=== PATIENT | female | born 1940 | race Caucasian/White ===

== ENCOUNTER 2018-05-28 02:17 | Inpatient (IN) ==
[2018-05-28] MEDS ORDERED: Sodium Chloride 0.9% 1,000 ML PRIMARY IV ONE ×2 (02:31→05:02)
[2018-05-28] MEDS ORDERED: PANTOPRAZOLE IV 40 MG VIAL IVP ONE (02:32)
[2018-05-28] MEDS ORDERED: Prochlorperazine Edisylate Inj 10mg/2ml vial IVP ONE (02:32)
[2018-05-28 02:42] LABS: BASOPHILS # (AUTO) 0.04 10*3/UL; BASOPHILS % (AUTO) 0.2 % (0-1); EOSINOPHILS # (AUTO) 0.14 10*3/UL; EOSINOPHILS % (AUTO) 0.8 % (0-8); Hematocrit [HCT] 44.5 % (37.0-47.0); Hemoglobin [HGB] 14.9 g/dL (12.0-16.0); LYMPHOCYTES # (AUTO) 2.78 10*3/uL; MEAN CORPUSCULAR HEMOGLOBIN 31.3 PG (27-31); MEAN CORPUSCULAR HGB CONC 33.5 g/dL (33-37); MEAN CORPUSCULAR VOLUME 93.5 FL (81-99); MEAN PLATELET VOLUME 10.2 FL (7.4-12.2); MONOCYTES # (AUTO) 1.27 10*3/UL (0.3-0.8); MONOCYTES % (AUTO) 7.3 % (5-15); NEUTROPHILS # (AUTO) 13.09 10*3/UL; NEUTROPHILS % (AUTO) 75.2 % (50-80); RED BLOOD COUNT 4.76 10^6/uL (4.20-5.40)
[2018-05-28 02:43] LABS: PLATELET MORPHOLOGY COMMENT NORMAL MORPHOLOGY (NORM); RBC MORPHOLOGY COMMENT NORMAL MORPHOLOGY (NORM); WBC MORPHOLOGY COMMENT NORMAL MORPHOLOGY (NORM)
[2018-05-28 02:50] LABS: BLOOD UREA NITROGEN 18 mg/dL (7-22); LIPASE 81 IU/L (23-300); SERUM ALBUMIN 4.6 g/dL (3.5-4.8)
[2018-05-28] MEDS ORDERED: diphenhydrAMINE 50 MG/1 ML VIAL IVP ONE (02:54)
--- NOTE | 2018-05-28 03:10 | PDOC ---
Nausea/Vomiting/Diarrhea HPI - General Chief Complaint: Nausea / Vomiting / Diarrhea Stated Complaint: N/V/D Date Seen by Provider: 05/28/18 Time Seen by Provider: 02:25 Source: POSITIVE: Patient, EMS Exam Limitations: POSITIVE: No limitations Nurse's Notes Reviewed & Considered: Yes EMS Report Reviewed & Considered: Verbal - History of Present Illness Initial Comments: The patient is a 77-year-old female who presents to the emergency department by ambulance with complaints of vomiting and diarrhea. She apparently had onset of nausea and vomiting approximately an hour prior to arrival in the emergency department. She states that she had multiple episodes of vomiting at home as well as multiple episodes of loose watery diarrhea. She does have some associated generalized abdominal pain. She had multiple episodes of vomiting at home and was feeling shaky and had chills, EMS was subsequently called. She also reports headache and states that she "hurts all over." She lives in [place] and is here getting a second opinion from Dr. Echols regarding her knee. She had knee surgery approximately 5 years ago and has had problems since then. She also had surgery on her hip which became infected and she required a prolonged course of IV antibiotics earlier this year. She reports that she did have a colonoscopy just 2 days ago and this was apparently normal. She does not currently take any blood thinners. She does drink regularly. - Patient Home Medications Home Medications: Home Medications Calcium Carbonate/Vitamin D3 [Calcium 600 + Vit D 200 Tablet] 1 ea PO DAILY 07/03 Cetirizine HCl [Allergy Relief] 10 mg PO DAILY 05/28/18 Cyanocobalamin (Vitamin B-12) [Vitamin B12] 1,000 mg PO DAILY 05/28/18 Diclofenac Sodium 1 unit TOPICAL PRN 05/28/18 Escitalopram Oxalate [Lexapro] 10 mg PO DAILY 05/28/18 Fluticasone Nasal [place] 0.05% [Flonase Nasal [place] 0.05%] 1 sprays NASAL DAILY 05/28/18 Gabapentin 600 mg PO BID 05/28/18 Hydrocodone Bit/Acetaminophen [Hydrocodon-Acetaminoph 7.5-325] 1 ea PO PRN 05/28 Polyethylene Glycol 3350 [Glycolax] 527 gm PO PRN 05/28/18 - Patient Allergies Allergies/Adverse Reactions: Allergies 3 Allergy/AdvReac Type Severity Reaction Status Date / Time shellfish derived Allergy RASH Verified 05/28/18 02:43 Past Medical History Past Medical History Reviewed: Other (please comment) (As per nursing assessment ) ROS - Limitations ROS Limitations: No Limitations Constitution: REPORTS: Chills, Weakness. DENIES: Fever Cardiovascular: DENIES: Chest Pain, Edema Respiratory: DENIES: Shortness Of Breath Neurological: REPORTS: Headache Gastrointestinal: REPORTS: Abdominal Pain, Nausea, Vomitting, Diarrhea. DENIES : Black Stools, Bloody Stools Endocrine: REPORTS: Fatigue Musculoskeletal: REPORTS: Denies MS Symptoms Genitourinary: REPORTS: Denies Symptoms Eyes: REPORTS: Denies Symptoms ENT: REPORTS: Denies Symptoms Skin: DENIES: Rash Nausea/Vomiting/Diarrhea Exam - General Appearance General Appearance: POSITIVE: Alert, Cooperative, No Acute Distress - HEENT HEENT: POSITIVE: Head Inspection Nml, Eyes Inspection Nml, Ears Inspection Nml, Nose Inspection Nml, Dry Mucous Membranes - Neck Neck: POSITIVE: Supple. NEGATIVE: Lymphadenopathy - Respiratory Respiratory: POSITIVE: No Respiratory Distress, Breath Sounds Normal - Cardiovascular Cardiovascular: POSITIVE: Regular Rate and Rhythm, Heart Sounds Normal Peripheral Pulses: Dorsalis-pedis (R): 2+, Dorsalis-pedis (L): 2+ - Abdomen Abdomen: Soft: (All Quadrants), Denies Tenderness: (All Quadrants), No Distention: (All Quadrants) - Skin Skin: POSITIVE: Intact, No Rash - Extremities Extremity: Normal ROM: (All Extremities), Normal Inspection: (All Extremities) - Neurological / Psychological Neurological: POSITIVE: Oriented X3 N/V/D Progress - Results Reviewed by me Xrays/CTs/US Reviewed by me: Yes Discussed with Radiologist: Yes Radiology Findings: CT head shows no acute intracranial findings per radiologist. CT of the abdomen and pelvis with IV contrast shows a diffuse colitis with no other acute findings per radiologist. Lab Results Reviewed by Me: Yes CBC and BMP: 05/28/18 02:30 05/28/18 02:30 Lab Results:: Laboratory Results 3 05/28/18 05/28/18 05/28/18 02:30 02:30 02:30 WBC 17.41 H RBC 4.76 Hgb 14.9 Hct 44.5 MCV 93.5 MCH 31.3 H MCHC 33.5 RDW Std Deviation 50.6 H RDW Coeff of Michele 15.1 H Plt Count 285 MPV 10.2 Immature Gran % (Auto) 0.5 Neut % (Auto) 75.2 Lymph % (Auto) 16.0 [place] % (Auto) 7.3 Eos % (Auto) 0.8 Baso % (Auto) 0.2 Immature Gran # (Auto) 0.09 Neut # (Auto) 13.09 Lymph # (Auto) 2.78 [place] # (Auto) 1.27 H Eos # (Auto) 0.14 Baso # (Auto) 0.04 WBC Morphology Comment Normal morphology Plt Morphology Comment Normal morphology RBC Morph Comment Normal morphology VBG pH VBG pCO2 VBG HCO3 VBG Base Excess Sodium 144 Potassium 3.6 L Chloride 106 Carbon Dioxide 27 Anion Gap 11 BUN 18 Creatinine 0.8 BUN/Creatinine Ratio 22.50 H Glucose 235 H Calculated Osmolality 307.0 H Lactic Acid Calcium 9.5 Magnesium Total Bilirubin 1.5 H AST 29 ALT 33 Alkaline Phosphatase 110 Troponin I < 0.012 C-Reactive Protein Total Protein 8.0 Albumin 4.6 Globulin 3.4 Albumin/Globulin Ratio 1.30 Amylase 79 Lipase 81 Ur Collection Type Urine Color Urine Clarity Urine pH Ur Specific Athena Urine Protein Urine Glucose (UA) Urine Ketones Urine Occult Blood Urine Nitrate Urine Bilirubin Urine Urobilinogen Ur Leukocyte Esterase Ur Culture Indicated? Serum Alcohol 3 05/28/18 05/28/18 05/28/18 02:30 02:30 02:30 WBC RBC Hgb Hct MCV MCH MCHC RDW Std Deviation RDW Coeff of Michele Plt Count MPV Immature Gran % (Auto) Neut % (Auto) Lymph % (Auto) [place] % (Auto) Eos % (Auto) Baso % (Auto) Immature Gran # (Auto) Neut # (Auto) Lymph # (Auto) [place] # (Auto) Eos # (Auto) Baso # (Auto) WBC Morphology Comment Plt Morphology Comment RBC Morph Comment VBG pH VBG pCO2 VBG HCO3 VBG Base Excess Sodium Potassium Chloride Carbon Dioxide Anion Gap BUN Creatinine BUN/Creatinine Ratio Glucose Calculated Osmolality Lactic Acid 2.3 H Calcium Magnesium Total Bilirubin AST ALT Alkaline Phosphatase Troponin I C-Reactive Protein 0.6 Total Protein Albumin Globulin Albumin/Globulin Ratio Amylase Lipase Ur Collection Type Urine Color Urine Clarity Urine pH Ur Specific Athena Urine Protein Urine Glucose (UA) Urine Ketones Urine Occult Blood Urine Nitrate Urine Bilirubin Urine Urobilinogen Ur Leukocyte Esterase Ur Culture Indicated? Serum Alcohol < 10 3 1105/28/18 05/28/18 02:30 02:52 04:05 WBC RBC Hgb Hct MCV MCH MCHC RDW Std Deviation RDW Coeff of Michele Plt Count MPV Immature Gran % (Auto) Neut % (Auto) Lymph % (Auto) [place] % (Auto) Eos % (Auto) Baso % (Auto) Immature Gran # (Auto) Neut # (Auto) Lymph # (Auto) [place] # (Auto) Eos # (Auto) Baso # (Auto) WBC Morphology Comment Plt Morphology Comment RBC Morph Comment VBG pH 7.41 VBG pCO2 36 L VBG HCO3 23 VBG Base Excess -2 Sodium Potassium Chloride Carbon Dioxide Anion Gap BUN Creatinine BUN/Creatinine Ratio Glucose Calculated Osmolality Lactic Acid Calcium Magnesium 2.1 Total Bilirubin AST ALT Alkaline Phosphatase Troponin I C-Reactive Protein Total Protein Albumin Globulin Albumin/Globulin Ratio Amylase Lipase Ur Collection Type Clean catch urine Urine Color Yellow Urine Clarity Clear Urine pH 5.0 Ur Specific [place] 1.015 Urine Protein Negative Urine Glucose (UA) 100 Urine Ketones Trace A Urine Occult Blood Negative Urine Nitrate Negative Urine Bilirubin Negative Urine Urobilinogen 0.2 Ur Leukocyte Esterase Negative Ur Culture Indicated? Culture not set Serum Alcohol EKG Interpretation:: POSITIVE: Normal Sinus Rhythm, Normal Rate, Normal QRS, Normal ST/T - Patient's Progress MDM / ED Course: An IV had been established per EMS and she did receive 1 L bolus of normal saline. She had received IV Zofran in route per EMS however on arrival she was still actively vomiting. She had multiple episodes of emesis and dry heaves and subsequently received Compazine 2.5 mg IV and Protonix 40 mg IV. She was having significant chills on arrival. Blood cultures and lactate were drawn with initial IV start. Her venous blood gas showed a normal pH. Her blood sugar is slightly elevated at 240. She had continued active vomiting and dry heaves and received Benadryl 25 mg IV. Blood work reveals an elevated white count at 17,000. The remainder of her blood work and urinalysis are essentially unremarkable. She was complaining of some headache as well as generalized abdominal pain. CT scan of the head showed no acute intracranial findings per radiologist. CT the abdomen and pelvis shows a diffuse colitis with no other acute findings per radiologist. After CT findings were discussed with the patient and her family. She is feeling somewhat better although she still has some generalized abdominal pain. She was unable to provide a stool sample here in the emergency department. The patient is discussed with Dr. Roman and he has agreed to admit the patient for further treatment. She was given Rocephin and Flagyl. - Consult Counseled: POSITIVE: Patient, Family, RE: Lab Results, RE: Radiology Results, RE : DX Patient Care Time - Estimated PCT Patient Care Time (In Minutes): 35 Vital Signs - Recent Vital Signs Vital Signs: Vital Signs (Last 8 hours) Temp Pulse Pulse Resp BP BP Pulse Ox 05/28/18 07:30 97.2 F 86 18 139/58 96 05/28/18 07:29 97 05/28/18 06:56 92 05/28/18 06:05 98.2 F 60 18 147/54 92 05/28/18 05:50 97.6 F 71 18 158/72 91 05/28/18 02:17 97.2 F 63 20 169/76 94 - VS Reviewed Vital Signs Reviewed: Yes Discharge Clinical Impression: Nausea and vomiting, Dehydration, Colitis Discharge Disposition: Admit to Inpatient Condition: Stable Date Decision to Admit to Inpatient: 05/28/18 Time Decision to Admit to Inpatient: 04:45
[2018-05-28 04:07] LABS: BILIRUBIN,URINE NEGATIVE (NEG); CLARITY,URINE CLEAR (CLEAR); COLOR,URINE YELLOW (Y); GLUCOSE, URINE (UA) 100 mg/dL (NEG); OCCULT BLOOD,URINE NEGATIVE (NEG); PROTEIN,URINE NEGATIVE (NEG); URINE SAMPLE TYPE CLEAN CATCH URINE; UROBILINOGEN,URINE 0.2 EU/dL (0.2)
--- NOTE | 2018-05-28 04:16 | DI ---
EXAM: CT Head Without Intravenous Contrast CLINICAL HISTORY: ITS.REASON VELAZQUEZ, vomiting Physician Notes: Tech Comments: TECHNIQUE: Axial computed tomography images of the head/brain without intravenous contrast. COMPARISON: No relevant prior studies available. FINDINGS: Brain: Unremarkable. No hemorrhage. No significant white matter disease. No edema. There is mild diffuse atrophy. Ventricles: Unremarkable. No ventriculomegaly. Bones/joints: Unremarkable. No acute fracture. Soft tissues: Unremarkable. Sinuses: Unremarkable as visualized. No acute sinusitis. Mastoid air cells: Unremarkable as visualized. No mastoid effusion. IMPRESSION: No acute findings.
--- NOTE | 2018-05-28 04:20 | DI ---
EXAM: CT Abdomen and Pelvis With Intravenous Contrast CLINICAL HISTORY: ITS.REASON abdominal pain, vomiting, elevated WBC Physician Notes: Tech Comments: TECHNIQUE: Axial computed tomography images of the abdomen and pelvis with intravenous contrast. COMPARISON: No relevant prior studies available. FINDINGS: Lung bases: There is mild bibasilar atelectasis. ABDOMEN: Liver: Unremarkable. No mass. Gallbladder and bile ducts: Unremarkable. No calcified stones. No ductal dilation. Pancreas: Unremarkable. No mass. No ductal dilation. Spleen: Unremarkable. No splenomegaly. Adrenals: Unremarkable. No mass. Kidneys and ureters: Unremarkable. No solid mass. No hydronephrosis. Stomach and bowel: There is mild circumferential wall thickening throughout the colon, suggestive of diffuse colitis. There are no inflammatory changes in bowel mesentery. There is no evidence of acute appendicitis or diverticulitis. No obstruction. PELVIS: Appendix: See above. Bladder: Unremarkable. No mass. Reproductive: The uterus is not seen, likely surgically removed. There is a 1 cm dystrophic appearing oval calcification in the right adnexa, possibly related to the right ovary. ABDOMEN and PELVIS: Intraperitoneal space: Unremarkable. No free air. No significant fluid collection. Bones/joints: There are postsurgical changes from right hip replacement with associated streak artifact in the pelvis. There is diffuse osteopenia with mild to moderate diffuse degenerative disc disease. No acute fracture. No dislocation. Soft tissues: Unremarkable. Vasculature: There is a mild to moderate amount of atherosclerotic calcification of the aorta and its branches.. No abdominal aortic aneurysm. Lymph nodes: Unremarkable. No enlarged lymph nodes. IMPRESSION: Diffuse colitis.
[2018-05-28 04:42] LABS: VENOUS PH 7.41 (7.32-7.42)
[2018-05-28] MEDS ORDERED: metroNIDAZOLE 500mg (Premix) 500 MG/100 ML BAG IV ONE (04:54)
[2018-05-28] MEDS ORDERED: cefTRIAXone Inj 1 GM in Sodium Chloride 0.9% 100 ML IV ONE (04:54)
[2018-05-28] MEDS ORDERED: LIDOCAINE W/ SODIUM BICARB 0.5 ML SYR SUBD PRN (05:54)
[2018-05-28] MEDS ORDERED: HYDROmorphone 2 MG/1 ML IVP PRN (05:54)
[2018-05-28] MEDS ORDERED: CALCIUM CARBONATE 500 MG (TUMS) CHEWABLE TABLET PO PRN (05:54)
[2018-05-28] MEDS ORDERED: ONDANSETRON 4 MG/2 ML VIAL IVP PRN (05:54)
[2018-05-28] MEDS: Sodium Chloride 0.9% 1,000 ML PRIMARY IV SCH ×2 (06:42→16:27)
--- NOTE | 2018-05-28 07:51 | EKG ---
[address] [place] [address] [place] [address] Measurements Intervals [place] Rate: 53 P: 65 AR: 166 QRS: 26 QRSD: 88 T: 22 QT: 446 QTc: 430 Interpretive Statements SINUS BRADYCARDIA WITH OCCASIONAL SUPRAVENTRICULAR PREMATURE COMPLEXES MODERATE T-WAVE ABNORMALITY, CONSIDER ANTERIOR ISCHEMIA [-0.1+ mV T WAVE IN V3/V4] No previous ECG available for comparison Electronically Signed On 05-28-18 08:22:53 MST by Dheeraj Burrell MD [email or web address]
[2018-05-28] MEDS: metroNIDAZOLE 500mg (Premix) 500 MG/100 ML BAG IV SCH ×2 (08:05→14:33)
[2018-05-28] MEDS: ESCITALOPRAM 10 MG TABLET PO SCH (10:18)
[2018-05-28] MEDS: GABAPENTIN 300 MG CAPSULE PO SCH ×2 (10:18→21:46)
[2018-05-28 10:55] LABS: HEMOGLOBIN A1C 5.39 % (4.2-6.0)
--- NOTE | 2018-05-28 11:01 | PDOC ---
HPI - History of Present Illness Date of Service: 05/28/18 Time of Service: 09:30 Chief Complaint: Nausea and vomiting and diarrhea History of Present Illness: This very pleasant 77-year-old female who's had a complex history this past year who presented with nausea and vomiting and diarrhea of sudden onset last night that was not resolved and she came in to the emergency room accompanied by her daughter. She is actually in town here to seek a second opinion for possible right knee revision after a knee replacement 5 years ago. Home is [place]. Interestingly, she had a colonoscopy 3 days ago as she had had a history of colon polyps and apparently some rectal adenomas. She had stated that colonoscopy was negative. She had no problems after the prep or in the 3 subsequent days and denied any fever last night. She had some abdominal pain but that's better this morning. Benadryl finally relieved her nausea and vomiting after Compazine and Zofran did not. She had a course of antibiotics over the summer after a right hip replacement with tissue infection and she spent 6 weeks on IV antibiotics and then another several weeks on by mouth antibiotics. She had diarrhea through that time but apparently did not have C. difficile colitis or C. difficile diarrhea. Despite ordering a C. difficile study, the patient has not had any further diarrhea since arrival in the emergency room. The patient stated the diarrhea from her antibiotics over the summer resolved. She denied any blood in the diarrhea last night. Her vomiting has resolved and she has an appetite this morning and would like to eat. CT scan showed diffuse colon wall inflammatory changes throughout the colon but no mesenteric inflammation. The patient was told that the colonoscopy and [place] was negative. That study was done with contrast. She does admit to drinking 2 beers per day. Her daughter attributes the symptoms to dehydration. Past Medical History Medical History: 1. Osteoarthritis with multiple surgeries. 2. Possible depression as she is on Lexapro. 3. Seasonal allergies Surgical History: 1. shoulder surgeries. 2. right hip replacement. 3. right knee replacement. 4. Hysterectomy. 5. Neck surgery. 6. Back surgeries Pertinent Family History: Sister has very bad diabetes Past Social History: Does not smoke. Drinks upwards of 2 alcoholic beverages daily. Lives in [place], [place], is but her has dementia and is in a senior care and repetition. Patient had 3 children but unfortunately one child has passed on. Her daughter is present with her here at bedside today. Tobacco Use: Former Smoker In the Past 12 Months, Have Used or Abuse Any of the Following Substance: None Alcohol Use: Other (2 alcoholic beverages daily.) Medication / Allergies Home Medications: Home Medications 3 Medication Instructions Recorded Confirmed Type Calcium Carbonate/Vitamin D3 1 ea PO DAILY 05/28/18 05/28/18 History [Calcium 600 + Vit D 200 Tablet] Cetirizine HCl [Allergy Relief] 10 mg PO DAILY 05/28/18 05/28/18 History Cyanocobalamin (Vitamin B-12) 1,000 mg PO DAILY 05/28/18 05/28/18 History [Vitamin B12] Diclofenac Sodium 1 unit TOPICAL PRN 05/28/18 05/28/18 History Escitalopram Oxalate [Lexapro] 10 mg PO DAILY 05/28/18 05/28/18 History Fluticasone Nasal [place] 0.05% 1 sprays NASAL DAILY 05/28/18 05/28/18 History [Flonase Nasal [place] 0.05%] Gabapentin 600 mg PO BID 05/28/18 05/28/18 History Hydrocodone Bit/Acetaminophen 1 ea PO PRN 05/28/18 05/28/18 History [Hydrocodon-Acetaminoph 7.5-325] Polyethylene Glycol 3350 [Glycolax] 527 gm PO PRN 05/28/18 05/28/18 History Allergies/Adverse Reactions: Allergies 3 Allergy/AdvReac Type Severity Reaction Status Date / Time shellfish derived Allergy RASH Verified 05/28/18 02:43 Review of Systems - Review of Systems All Systems: Reviewed & No Additional Complaints Except as Stated (I did a 12 point review of systems and it was negative other than that discussed in the history of present illness and exceptions noted below.) - Additonal Details Additional ROS Details: Remote history of thyroid problems during her pregnancies that resolved and she has no longer on medications. Exam - Vitals Vital Signs: Vital Signs Temperature 97.2 F Temperature Source Temporal Artery Scan Pulse Rate [Pulse Oximeter] 86 Pulse Rate 86 Respiratory Rate 18 Blood Pressure [Left Arm] 139/58 Blood Pressure 139/58 Pulse Ox 96 Oxygen Flow Rate 2 Oxygen Delivery Method Nasal Cannula Height 5 ft 3 in Weight 139 lb - General General Appearance: No Acute Distress, Cooperative - Head Head Exam: Normal Inspection, Normocephalic, Atraumatic - Eye Eye Exam: POSITIVE: No Scleral Icterus - ENT ENT Exam: POSITIVE: Mucous Membranes Moist - Neck Neck Exam: Normal Inspection, No Tenderness, No Lymphadenopathy, No Thyromegaly , JVP is not Raised - Respiratory Respiratory Exam: POSITIVE: Clear to Auscultation - Bilaterally, Breathing Non Labored, Normal to Percussion and Palpation - Cardiovascular Cardiovascular Exam: POSITIVE: RRR, No Murmur, No Clicks, No Gallops, No Rubs, No JVD - GI/Abdominal GI/Abdominal Exam: POSITIVE: Normal Bowel Sounds, Non Tender, Non Distended, Soft - Rectal Rectal Exam: POSITIVE: Deferred - External Exam: POSITIVE: Deferred - Extremities Extremities Exam: POSITIVE: No Clubbing Present, No Edema Present, No Cyanosis Present - Back Back Exam: POSITIVE: No CVA Tenderness Additional Back Exam Details: Scar from prior lumbar surgeries noted. - Neurological Neurological Exam: POSITIVE: Alert, Oriented x 3, No Facial Droop, Speech Intact / Clear, Moves All Extremities Equally - Psychiatric Psychiatric Exam: POSITIVE: Normal Affect, Normal Mood Results - Labs CBC and BMP: 05/28/18 02:30 05/28/18 02:30 Additional Lab Results: Laboratory Results 05/28/18 05/28/18 05/28/18 Range/Units 02:30 02:30 02:30 WBC 17.41 H (4.8-10.8) 10^3/uL RBC 4.76 (4.20-5.40) 10^6/uL Hgb 14.9 (12.0-16.0) g/dL Hct 44.5 (37.0-47.0) % MCV 93.5 (81-99) FL MCH 31.3 H (27-31) PG MCHC 33.5 (33-37) g/dL RDW Std Deviation 50.6 H (39-50) fL RDW Coeff of Michele 15.1 H (11.5-14.5) % Plt Count 285 (140-350) 10*3/uL MPV 10.2 (7.4-12.2) FL Immature Gran % (Auto) 0.5 (0-5) % Neut % (Auto) 75.2 (50-80) % Lymph % (Auto) 16.0 (10-50) % [place] % (Auto) 7.3 (5-15) % Eos % (Auto) 0.8 (0-8) % Baso % (Auto) 0.2 (0-1) % Immature Gran # (Auto) 0.09 10*3/UL Neut # (Auto) 13.09 10*3/UL Lymph # (Auto) 2.78 10*3/uL [place] # (Auto) 1.27 H (0.3-0.8) 10*3/UL Eos # (Auto) 0.14 10*3/UL Baso # (Auto) 0.04 10*3/UL WBC Morphology Comment Normal morphology (NORM) Plt Morphology Comment Normal morphology (NORM) RBC Morph Comment Normal morphology (NORM) VBG pH (7.32-7.42) VBG pCO2 (45-55) mmHg VBG HCO3 (22-26) mmol/L VBG Base Excess (-2-2) MMOL/L Sodium 144 (135-145) meq/L Potassium 3.6 L (3.8-5.2) meq/L Chloride 106 (98-112) meq/L Carbon Dioxide 27 (23-33) meq/L Anion Gap 11 (5-20) BUN 18 (7-22) mg/dL Creatinine 0.8 (0.50-1.20) mg/dL BUN/Creatinine Ratio 22.50 H (6-20) Glucose 235 H (78-110) mg/dL Mean Blood Glucose mg/dL Hemoglobin A1c (4.2-6.0) % Calculated Osmolality 307.0 H (267-292) mOsm/kg Lactic Acid (0.70-2.10) MMOL/L Calcium 9.5 (8.7-10.7) mg/dL Magnesium (1.6-2.4) mg/dL Total Bilirubin 1.5 H (0.3-1.2) mg/dL AST 29 (8-39) IU/L ALT 33 (9-52) IU/L Alkaline Phosphatase 110 (38-126) IU/L Troponin I < 0.012 (< 0.040) ng/mL C-Reactive Protein (0.0-0.9) mg/dL Total Protein 8.0 (6.1-8.0) g/dL Albumin 4.6 (3.5-4.8) g/dL Globulin 3.4 (2.50-4.10) g/dL Albumin/Globulin Ratio 1.30 (1.3-2.0) mg/g Amylase 79 (30-110) U/L Lipase 81 (23-300) IU/L Ur Collection Type Urine Color (Y) Urine Clarity (CLEAR) Urine pH (5.0-8.5) Ur Specific [place] (1.005-1.030) Urine Protein (NEG) mg/dl Urine Glucose (UA) (NEG) mg/dL Urine Ketones (NEG) Urine Occult Blood (NEG) Urine Nitrate (NEG) Urine Bilirubin (NEG) Urine Urobilinogen (0.2) EU/dL Ur Leukocyte Esterase (NEG) Ur Culture Indicated? Serum Alcohol (0-10) mg/dL 05/28/18 05/28/18 05/28/18 Range/Units 02:30 02:30 02:30 WBC (4.8-10.8) 10^3/uL RBC (4.20-5.40) 10^6/uL Hgb (12.0-16.0) g/dL Hct (37.0-47.0) % MCV (81-99) FL MCH (27-31) PG MCHC (33-37) g/dL RDW Std Deviation (39-50) fL RDW Coeff of Michele (11.5-14.5) % Plt Count (140-350) 10*3/uL MPV (7.4-12.2) FL Immature Gran % (Auto) (0-5) % Neut % (Auto) (50-80) % Lymph % (Auto) (10-50) % [place] % (Auto) (5-15) % Eos % (Auto) (0-8) % Baso % (Auto) (0-1) % Immature Gran # (Auto) 10*3/UL Neut # (Auto) 10*3/UL Lymph # (Auto) 10*3/uL [place] # (Auto) (0.3-0.8) 10*3/UL Eos # (Auto) 10*3/UL Baso # (Auto) 10*3/UL WBC Morphology Comment (NORM) Plt Morphology Comment (NORM) RBC Morph Comment (NORM) VBG pH (7.32-7.42) VBG pCO2 (45-55) mmHg VBG HCO3 (22-26) mmol/L VBG Base Excess (-2-2) MMOL/L Sodium (135-145) meq/L Potassium (3.8-5.2) meq/L Chloride (98-112) meq/L Carbon Dioxide (23-33) meq/L Anion Gap (5-20) BUN (7-22) mg/dL Creatinine (0.50-1.20) mg/dL BUN/Creatinine Ratio (6-20) Glucose (78-110) mg/dL Mean Blood Glucose mg/dL Hemoglobin A1c (4.2-6.0) % Calculated Osmolality (267-292) mOsm/kg Lactic Acid 2.3 H (0.70-2.10) MMOL/L Calcium (8.7-10.7) mg/dL Magnesium (1.6-2.4) mg/dL Total Bilirubin (0.3-1.2) mg/dL AST (8-39) IU/L ALT (9-52) IU/L Alkaline Phosphatase (38-126) IU/L Troponin I (< 0.040) ng/mL C-Reactive Protein 0.6 (0.0-0.9) mg/dL Total Protein (6.1-8.0) g/dL Albumin (3.5-4.8) g/dL Globulin (2.50-4.10) g/dL Albumin/Globulin Ratio (1.3-2.0) mg/g Amylase (30-110) U/L Lipase (23-300) IU/L Ur Collection Type Urine Color (Y) Urine Clarity (CLEAR) Urine pH (5.0-8.5) Ur Specific [place] (1.005-1.030) Urine Protein (NEG) mg/dl Urine Glucose (UA) (NEG) mg/dL Urine Ketones (NEG) Urine Occult Blood (NEG) Urine Nitrate (NEG) Urine Bilirubin (NEG) Urine Urobilinogen (0.2) EU/dL Ur Leukocyte Esterase (NEG) Ur Culture Indicated? Serum Alcohol < 10 (0-10) mg/dL 05/28/18 05/28/18 05/28/18 Range/Units 02:30 02:52 04:05 WBC (4.8-10.8) 10^3/uL RBC (4.20-5.40) 10^6/uL Hgb (12.0-16.0) g/dL Hct (37.0-47.0) % MCV (81-99) FL MCH (27-31) PG MCHC (33-37) g/dL RDW Std Deviation (39-50) fL RDW Coeff of Michele (11.5-14.5) % Plt Count (140-350) 10*3/uL MPV (7.4-12.2) FL Immature Gran % (Auto) (0-5) % Neut % (Auto) (50-80) % Lymph % (Auto) (10-50) % [place] % (Auto) (5-15) % Eos % (Auto) (0-8) % Baso % (Auto) (0-1) % Immature Gran # (Auto) 10*3/UL Neut # (Auto) 10*3/UL Lymph # (Auto) 10*3/uL [place] # (Auto) (0.3-0.8) 10*3/UL Eos # (Auto) 10*3/UL Baso # (Auto) 10*3/UL WBC Morphology Comment (NORM) Plt Morphology Comment (NORM) RBC Morph Comment (NORM) VBG pH 7.41 (7.32-7.42) VBG pCO2 36 L (45-55) mmHg VBG HCO3 23 (22-26) mmol/L VBG Base Excess -2 (-2-2) MMOL/L Sodium (135-145) meq/L Potassium (3.8-5.2) meq/L Chloride (98-112) meq/L Carbon Dioxide (23-33) meq/L Anion Gap (5-20) BUN (7-22) mg/dL Creatinine (0.50-1.20) mg/dL BUN/Creatinine Ratio (6-20) Glucose (78-110) mg/dL Mean Blood Glucose mg/dL Hemoglobin A1c (4.2-6.0) % Calculated Osmolality (267-292) mOsm/kg Lactic Acid (0.70-2.10) MMOL/L Calcium (8.7-10.7) mg/dL Magnesium 2.1 (1.6-2.4) mg/dL Total Bilirubin (0.3-1.2) mg/dL AST (8-39) IU/L ALT (9-52) IU/L Alkaline Phosphatase (38-126) IU/L Troponin I (< 0.040) ng/mL C-Reactive Protein (0.0-0.9) mg/dL Total Protein (6.1-8.0) g/dL Albumin (3.5-4.8) g/dL Globulin (2.50-4.10) g/dL Albumin/Globulin Ratio (1.3-2.0) mg/g Amylase (30-110) U/L Lipase (23-300) IU/L Ur Collection Type Clean catch urine Urine Color Yellow (Y) Urine Clarity Clear (CLEAR) Urine pH 5.0 (5.0-8.5) Ur Specific [place] 1.015 (1.005-1.030) Urine Protein Negative (NEG) mg/dl Urine Glucose (UA) 100 (NEG) mg/dL Urine Ketones Trace A (NEG) Urine Occult Blood Negative (NEG) Urine Nitrate Negative (NEG) Urine Bilirubin Negative (NEG) Urine Urobilinogen 0.2 (0.2) EU/dL Ur Leukocyte Esterase Negative (NEG) Ur Culture Indicated? Culture not set Serum Alcohol (0-10) mg/dL 05/28/18 Range/Units 10:47 WBC (4.8-10.8) 10^3/uL RBC (4.20-5.40) 10^6/uL Hgb (12.0-16.0) g/dL Hct (37.0-47.0) % MCV (81-99) FL MCH (27-31) PG MCHC (33-37) g/dL RDW Std Deviation (39-50) fL RDW Coeff of Michele (11.5-14.5) % Plt Count (140-350) 10*3/uL MPV (7.4-12.2) FL Immature Gran % (Auto) (0-5) % Neut % (Auto) (50-80) % Lymph % (Auto) (10-50) % [place] % (Auto) (5-15) % Eos % (Auto) (0-8) % Baso % (Auto) (0-1) % Immature Gran # (Auto) 10*3/UL Neut # (Auto) 10*3/UL Lymph # (Auto) 10*3/uL [place] # (Auto) (0.3-0.8) 10*3/UL Eos # (Auto) 10*3/UL Baso # (Auto) 10*3/UL WBC Morphology Comment (NORM) Plt Morphology Comment (NORM) RBC Morph Comment (NORM) VBG pH (7.32-7.42) VBG pCO2 (45-55) mmHg VBG HCO3 (22-26) mmol/L VBG Base Excess (-2-2) MMOL/L Sodium (135-145) meq/L Potassium (3.8-5.2) meq/L Chloride (98-112) meq/L Carbon Dioxide (23-33) meq/L Anion Gap (5-20) BUN (7-22) mg/dL Creatinine (0.50-1.20) mg/dL BUN/Creatinine Ratio (6-20) Glucose (78-110) mg/dL Mean Blood Glucose 93.487 mg/dL Hemoglobin A1c 5.39 (4.2-6.0) % Calculated Osmolality (267-292) mOsm/kg Lactic Acid (0.70-2.10) MMOL/L Calcium (8.7-10.7) mg/dL Magnesium (1.6-2.4) mg/dL Total Bilirubin (0.3-1.2) mg/dL AST (8-39) IU/L ALT (9-52) IU/L Alkaline Phosphatase (38-126) IU/L Troponin I (< 0.040) ng/mL C-Reactive Protein (0.0-0.9) mg/dL Total Protein (6.1-8.0) g/dL Albumin (3.5-4.8) g/dL Globulin (2.50-4.10) g/dL Albumin/Globulin Ratio (1.3-2.0) mg/g Amylase (30-110) U/L Lipase (23-300) IU/L Ur Collection Type Urine Color (Y) Urine Clarity (CLEAR) Urine pH (5.0-8.5) Ur Specific [place] (1.005-1.030) Urine Protein (NEG) mg/dl Urine Glucose (UA) (NEG) mg/dL Urine Ketones (NEG) Urine Occult Blood (NEG) Urine Nitrate (NEG) Urine Bilirubin (NEG) Urine Urobilinogen (0.2) EU/dL Ur Leukocyte Esterase (NEG) Ur Culture Indicated? Serum Alcohol (0-10) mg/dL - Imaging Status: Image Reviewed by Me (I looked at the head CT scan. There is no evidence of blood. It was read as negative by the radiologist. I looked at the abdominal CT scan. It was read as diffuse colitis.) Assessment and Plan - Patient Problems (1) Colitis Current Visit: Yes Status: Acute Code(s): K52.9 - Noninfective gastroenteritis and colitis, unspecified (2) Osteoarthritis Current Visit: Yes Status: Acute Code(s): M19.90 - Unspecified osteoarthritis, unspecified site Qualifiers: Osteoarthritis location: multiple joints Osteoarthritis type: primary Qualified Code(s): M15.0 - Primary generalized (osteo)arthritis - Assessment / Plan Additional Assessment/Plan Details: This is a very difficult case, with recent antibiotics and recent colonoscopy, could be related to C. diff, could be related to colonoscope. Likely not ischemic as not segmental colon involvement and no blood. I spoke to GI and surgery for advice on how to approach this case. For now, will treat as if this could be infectious colitis and hold off on steroids for now. rare to have infection from colonoscope, but possible and also chemical colitis reported from cleaning prep for colonoscope. GI and surgery also suggested prep could have caused symptoms. will try to get records from [facility], regarding colonoscopy findings. stool studies ordered rocephin/flagyl for now. when okay to go PO, consider cipro/flagyl labs in AM hyperglycemia (stress hyperglycemia), HbA1C is normal check inflammatory markers. Code status is DO NOT RESUSCITATE
[2018-05-28] MEDS ORDERED: Influenza 18-19 Vaccine (6mo+) 60 MCG/0.5 ML SYRINGE IM ONE (11:35)
[2018-05-28] MEDS: ACETAMINOPHEN 325 MG TABLET PO PRN (18:10)
[2018-05-28] MEDS ORDERED: ACIDOPHILUS/BULGARICUS 1 EACH GRAN.PACK PO ONE (19:28)
[2018-05-28] MEDS: Vancomycin Oral Soln 125 MG/5 ML (7500MG/300ML) BOTTLE PO SCH (21:45)
[2018-05-28] MEDS: ACIDOPHILUS/BULGARICUS 1 EACH GRAN.PACK PO SCH (21:46)
[2018-05-29] MEDS: Sodium Chloride 0.9% 1,000 ML PRIMARY IV SCH ×2 (02:57→07:38)
[2018-05-29] MEDS: Vancomycin Oral Soln 125 MG/5 ML (7500MG/300ML) BOTTLE PO SCH ×4 (02:58→20:02)
[2018-05-29] MEDS: ACETAMINOPHEN 325 MG TABLET PO PRN ×2 (03:14→14:42)
[2018-05-29 05:20] LABS: BASOPHILS # (AUTO) 0.01 10*3/UL; BASOPHILS % (AUTO) 0.2 % (0-1); EOSINOPHILS # (AUTO) 0.05 10*3/UL; EOSINOPHILS % (AUTO) 0.9 % (0-8); Hematocrit [HCT] 37.5 % (37.0-47.0); Hemoglobin [HGB] 12.1 g/dL (12.0-16.0); LYMPHOCYTES # (AUTO) 0.68 10*3/uL; MEAN CORPUSCULAR HEMOGLOBIN 30.9 PG (27-31); MEAN CORPUSCULAR HGB CONC 32.3 g/dL (33-37); MEAN CORPUSCULAR VOLUME 95.7 FL (81-99); MEAN PLATELET VOLUME 9.8 FL (7.4-12.2); MONOCYTES # (AUTO) 0.36 10*3/UL (0.3-0.8); MONOCYTES % (AUTO) 6.6 % (5-15); NEUTROPHILS # (AUTO) 4.34 10*3/UL; NEUTROPHILS % (AUTO) 79.6 % (50-80); RED BLOOD COUNT 3.92 10^6/uL (4.20-5.40)
[2018-05-29 05:26] LABS: PLATELET MORPHOLOGY COMMENT NORMAL MORPHOLOGY (NORM); RBC MORPHOLOGY COMMENT NORMAL MORPHOLOGY (NORM); WBC MORPHOLOGY COMMENT NORMAL MORPHOLOGY (NORM)
[2018-05-29 05:35] LABS: BLOOD UREA NITROGEN 6 mg/dL (7-22)
[2018-05-29] MEDS ORDERED: cefTRIAXone Inj 2 GM in Sodium Chloride 0.9% 100 ML IV SCH (06:00)
--- NOTE | 2018-05-29 07:33 | PDOC(PROG) ---
Date of Service: 05/29/18 Time of Service: 13:00 Interval History: Subjective Patient came into the hospital with history of nausea, vomiting and diarrhea. She said she had multiple bowel movements and vomiting. This is all resolved. She has now some minimal bowel movements. There was no bleeding. There was no significant abdominal pain. Because of all the symptoms she came into the ER. She was admitted after finding colitis on CT. She did have colonoscopy 3 days prior to her presentation. Never been diagnosed with C. difficile before. she said she didn't eat much yesterday. Overall she feels better today. Objective : Data - Labs CBC and BMP: 05/29/18 04:50 05/29/18 04:50 Objective : Exam - General General Appearance: No Acute Distress, Cooperative - Head Head Exam: Normal Inspection - Eye Eye Exam: Normal Appearance - ENT ENT Exam: Normal Exam - Neck Neck Exam: Normal Inspection - Respiratory Respiratory Exam: Clear to Auscultation - Bilaterally - Cardiovascular Cardiovascular Exam: RRR - GI/Abdominal GI/Abdominal Exam: Normal Bowel Sounds, Non Distended, Soft, No Organomegaly - Rectal Rectal Exam: Deferred - External Exam: Deferred Exam: Deferred - Extremities Extremities Exam: Normal Inspection - Back Back Exam: Normal Inspection - Neurological Neurological Exam: Alert, Oriented x 3, CN II-XII Intact, No Facial Droop, Speech Intact / Clear, Moves All Extremities Equally - Psychiatric Psychiatric Exam: Normal Affect - Integumentary Integumentary Exam: Normal Color Assessment and Plan - Patient Problems (1) C. difficile colitis Current Visit: Yes Status: Acute Comment: Her presentation is due to C. difficile. She was put on vancomycin and will continue with it. She is on probiotic continue. I think we'll cut back on the fluid, will add. Some potassium to the fluid. Will watch her another day and see how her symptoms tomorrow and then will decide about keeping her or releasing her from the hospital. Code(s): A04.72 - Enterocolitis due to Clostridium difficile, not specified as recurrent (2) Colitis Current Visit: Yes Status: Acute Comment: This is secondary to C. difficile. Code(s): K52.9 - Noninfective gastroenteritis and colitis, unspecified (3) Osteoarthritis Current Visit: Yes Status: Acute Comment: She is from [place] and she came into see Dr. Echols for her osteoarthritis and she told me he knows about her being in the hospital and he' ll see her in the hospital today. Code(s): M19.90 - Unspecified osteoarthritis, unspecified site Qualifiers: Osteoarthritis location: multiple joints Osteoarthritis type: primary Qualified Code(s): M15.0 - Primary generalized (osteo)arthritis (4) Hypokalemia Current Visit: Yes Status: Acute Comment: We will put her on Potassium replacement Code(s): E87.6 - Hypokalemia
[2018-05-29] MEDS: HYDROcodone-APAP 5 MG -325 MG TABLET PO PRN ×2 (07:37→15:11)
[2018-05-29] MEDS: ENOXAPARIN SODIUM 40 MG/0.4 ML SYRINGE SUBCUT SCH (08:16)
[2018-05-29] MEDS: POTASSIUM CHLORIDE 20 MEQ TAB PO SCH ×2 (08:16→20:01)
[2018-05-29] MEDS: ACIDOPHILUS/BULGARICUS 1 EACH GRAN.PACK PO SCH ×2 (08:16→14:42)
[2018-05-29] MEDS: GABAPENTIN 300 MG CAPSULE PO SCH ×2 (08:16→20:01)
[2018-05-29] MEDS: ESCITALOPRAM 10 MG TABLET PO SCH (08:16)
[2018-05-29] MEDS: ACIDOPHILUS/BULGARICUS CHEWABLE TABLET PO SCH (20:02)
[2018-05-30] MEDS: Vancomycin Oral Soln 125 MG/5 ML (7500MG/300ML) BOTTLE PO SCH ×2 (02:18→09:26)
[2018-05-30] MEDS: ACETAMINOPHEN 325 MG TABLET PO PRN (02:33)
[2018-05-30 04:37] VITALS: O2SAT 93
[2018-05-30 05:35] LABS: BASOPHILS # (AUTO) 0.01 10*3/UL; BASOPHILS % (AUTO) 0.1 % (0-1); EOSINOPHILS # (AUTO) 0.12 10*3/UL; EOSINOPHILS % (AUTO) 1.7 % (0-8); Hematocrit [HCT] 39.1 % (37.0-47.0); Hemoglobin [HGB] 12.8 g/dL (12.0-16.0); LYMPHOCYTES # (AUTO) 1.26 10*3/uL; MEAN CORPUSCULAR HEMOGLOBIN 31.1 PG (27-31); MEAN CORPUSCULAR HGB CONC 32.7 g/dL (33-37); MEAN CORPUSCULAR VOLUME 95.1 FL (81-99); MEAN PLATELET VOLUME 10.2 FL (7.4-12.2); MONOCYTES # (AUTO) 0.52 10*3/UL (0.3-0.8); MONOCYTES % (AUTO) 7.5 % (5-15); NEUTROPHILS # (AUTO) 5.01 10*3/UL; NEUTROPHILS % (AUTO) 72.4 % (50-80); RED BLOOD COUNT 4.11 10^6/uL (4.20-5.40)
[2018-05-30 05:38] LABS: PLATELET MORPHOLOGY COMMENT NORMAL MORPHOLOGY (NORM); RBC MORPHOLOGY COMMENT NORMAL MORPHOLOGY (NORM); WBC MORPHOLOGY COMMENT NORMAL MORPHOLOGY (NORM)
[2018-05-30 05:51] LABS: BLOOD UREA NITROGEN 6 mg/dL (7-22); BUN/CREATININE RATIO 8.57 (6-20)
[2018-05-30 06:51] VITALS: BP 148/59; RESP 20; TEMP 97.6
--- NOTE | 2018-05-30 07:21 | DCSUMMARY ---
Hospitalization Summary Admit Date: 05/28/2018 Discharge Date: 05/30/18 Hospital Course: Discharge diagnoses 1. C. difficile colitis 2. History of osteoarthritis 3. History of depression 4. History of right hip replacement 5. History of right knee replacement Hospital course This is a 77 years old female with medical history significant for history of osteoarthritis and recent hip replacement that was complicated by an infection and needed IV antibiotic treatment in the summer who came into the hospital with history of nausea, vomiting and diarrhea that started the day she presented. Patient did have a recent colonoscopy few days prior to the incident. There was no abnormal finding based on Her report. Because of the nausea and vomiting she came into the ER a CT of the abdomen showed colitis so she was admitted to the hospital. Was admitted by Dr. Philip please see his note. Patient was put on IV fluid. C. difficile test came back positive. She was started on vancomycin orally. She did have a low potassium and that was replaced. I saw her the next day she was making an improvement. We kept her another night in the hospital. The next day she was feeling better she was tolerating diet with no vomiting. Diarrhea seems to be resolved. we thought she could be discharged home and finish her course of vancomycin as an outpatient. She is from [place] and was here in town to see Dr. Echols about her right knee however he was unable to see her here. She'll see him later on as an outpatient. Discharge instruction Diet regular Activity as started Medications Current Medication(s) 3 Medication Instructions Recorded Confirmed Type Calcium Carbonate/Vitamin D3 1 ea PO DAILY 05/28/18 05/28/18 History [Calcium 600 + Vit D 200 Tablet] Cetirizine HCl [Allergy Relief] 10 mg PO DAILY 05/28/18 05/28/18 History Cyanocobalamin (Vitamin B-12) 1,000 mg PO DAILY 05/28/18 05/28/18 History [Vitamin B12] Diclofenac Sodium 1 unit TOPICAL PRN 05/28/18 05/28/18 History Escitalopram Oxalate [Lexapro] 10 mg PO DAILY 05/28/18 05/28/18 History Fluticasone Nasal [place] 0.05% 1 sprays NASAL DAILY 05/28/18 05/28/18 History [Flonase Nasal [place] 0.05%] Gabapentin 600 mg PO BID 05/28/18 05/28/18 History Hydrocodone Bit/Acetaminophen 1 ea PO PRN 05/28/18 05/28/18 History [Hydrocodon-Acetaminoph 7.5-325] Acidophilus/Bulgaricus [Lactinex] 4 tab PO TID tab.chew 05/30/18 Rx Vancomycin Oral Soln 125 mg PO Q6H bottle 05/30/18 Rx Follow-up with PCP in 1-2 weeks Condition at discharge was stable for discharge Exam - Vitals Vital Signs: Vital Signs Temperature 97.6 F Temperature Source Oral Pulse Rate [Pulse Oximeter] 57 Pulse Rate 61 Respiratory Rate 20 Blood Pressure [Right Arm] 148/59 Blood Pressure [Left Arm] 129/46 Blood Pressure 139/58 Pulse Ox 93 Oxygen Flow Rate 2 Oxygen Delivery Method Room Air Height 5 ft 3 in Weight 144 lb 9.6 oz - General General Appearance: No Acute Distress, Cooperative - Head Head Exam: Normal Inspection - Eye Eye Exam: POSITIVE: Normal Appearance - ENT ENT Exam: POSITIVE: Normal Exam - Neck Neck Exam: Normal Inspection - Respiratory Respiratory Exam: POSITIVE: Clear to Auscultation - Bilaterally - Cardiovascular Cardiovascular Exam: POSITIVE: RRR - GI/Abdominal GI/Abdominal Exam: POSITIVE: Normal Bowel Sounds, Non Tender, Non Distended, Soft, No Organomegaly - Rectal Rectal Exam: POSITIVE: Deferred - External Exam: POSITIVE: Deferred Exam: POSITIVE: Deferred - Extremities Extremities Exam: POSITIVE: Normal Inspection - Back Back Exam: POSITIVE: Normal Inspection - Neurological Neurological Exam: POSITIVE: Alert, Oriented x 3, CN II-XII Intact, No Facial Droop, Speech Intact / Clear, Moves All Extremities Equally - Psychiatric Psychiatric Exam: POSITIVE: Normal Affect - Integumentary Integumentary Exam: POSITIVE: Normal Color Patient Problems - Patient Problem List (1) C. difficile colitis Current Visit: Yes Status: Acute Code(s): A04.72 - Enterocolitis due to Clostridium difficile, not specified as recurrent Category: Medical (2) Colitis Current Visit: Yes Status: Acute Code(s): K52.9 - Noninfective gastroenteritis and colitis, unspecified Category: Medical (3) Osteoarthritis Current Visit: Yes Status: Acute Code(s): M19.90 - Unspecified osteoarthritis, unspecified site Qualifiers: Osteoarthritis location: multiple joints Osteoarthritis type: primary Qualified Code(s): M15.0 - Primary generalized (osteo)arthritis Category: Medical (4) Hypokalemia Current Visit: Yes Status: Acute Code(s): E87.6 - Hypokalemia Category: Medical
[2018-05-30] MEDS: GABAPENTIN 300 MG CAPSULE PO SCH (09:25)
[2018-05-30] MEDS: ACIDOPHILUS/BULGARICUS CHEWABLE TABLET PO SCH (09:26)
[2018-05-30] MEDS: ENOXAPARIN SODIUM 40 MG/0.4 ML SYRINGE SUBCUT SCH (09:26)
[2018-05-30] MEDS: ESCITALOPRAM 10 MG TABLET PO SCH (09:26)
== END 2018-05-30 10:20 | disposition home or self-care (01) | DRG 373 ==
LOC: ER 02:17 → MED/SURG 05:42
PROVIDERS: ADMIT Family Medicine; ATTEND Family Medicine

== ENCOUNTER 2018-11-27 09:30 | Inpatient (IN) ==
[~2018-11-27 09:30] MED LIST: ACETAMINOPHEN 500 MG TABLET PO ONE; CELECOXIB 200 MG CAPSULE PO ONE; GABAPENTIN 300 MG CAPSULE PO ONE; LIDOCAINE W/ SODIUM BICARB 0.5 ML SYR ONE; LIDOCAINE W/ SODIUM BICARB 0.5 ML SYR SUBD ONE; Lactated Ringers 1,000 ML PRIMARY IV ONE; Nasal Sanitizer POPSWAB ampule 3 AMP (Nozin) PREOP DOSE ENOS SCH; PANTOPRAZOLE 20 MG TABLET.DR PO ONE; ceFAZolin Inj 2gm (Premix) 2 GM/50 ML BAG IV ONE
[2018-11-27] MEDS ORDERED: CELECOXIB 200 MG CAPSULE PO ONE (13:16)
[2018-11-27] MEDS ORDERED: ACETAMINOPHEN 500 MG TABLET PO ONE (13:16)
[2018-11-27] MEDS ORDERED: PANTOPRAZOLE 20 MG TABLET.DR PO ONE (13:16)
[2018-11-27] MEDS ORDERED: GABAPENTIN 300 MG CAPSULE PO ONE (13:17)
[2018-11-27 13:40] LABS: BILIRUBIN,URINE NEGATIVE (NEG); CLARITY,URINE CLEAR (CLEAR); COLOR,URINE YELLOW (Y); GLUCOSE, URINE (UA) NEGATIVE (NEG); OCCULT BLOOD,URINE NEGATIVE (NEG); PROTEIN,URINE NEGATIVE (NEG); URINE SAMPLE TYPE CLEAN CATCH URINE; UROBILINOGEN,URINE 0.2 EU/dL (0.2)
[2018-11-27] MEDS: Lactated Ringers 1,000 ML PRIMARY IV SCH ×2 (14:05→23:57)
[2018-11-27] MEDS ORDERED: PROPOFOL 10 MG/1 ML (200 MG/20 ML) VIAL IV ONE ×4 (14:40→21:23)
[2018-11-27] MEDS ORDERED: fentaNYL Inj 100 MCG/2 ML VIAL ONE (14:40)
[2018-11-27] MEDS ORDERED: MIDAZOLAM HCL 2 MG/2 ML VIAL ONE ×2 (14:40→16:26)
[2018-11-27] MEDS ORDERED: EPINEPHrine Inj (1:1,000) 1 mg/ml amp ONE (15:25)
[2018-11-27] MEDS ORDERED: Ketorolac Inj 30 MG, Morphine Inj (Ortho Cocktail) 4 MG, BUPivacaine Inj 0.25% PF 150 MG SPLASH ONE ×6 (15:30)
[2018-11-27] MEDS ORDERED: LIDOCAINE HCL 2 % 10 ML JELLY URO-JECT TOPICAL ONE (15:56)
[2018-11-27] MEDS ORDERED: LIDOCAINE HCL 2 % 10 ML JELLY URO-JECT TOPICAL PRN (15:59)
[2018-11-27] MEDS ORDERED: MORPHINE SULFATE/PF 10 MG/10 ML AMPULE ONE (16:02)
[2018-11-27] MEDS ORDERED: Ropivacaine 0.2% VIAL 20 ML ONE (16:02)
[2018-11-27] MEDS ORDERED: DEXAMETHASONE PF 10 MG/1 ML VIAL ONE (16:02)
[2018-11-27] MEDS ORDERED: BUPIVACAINE 0.5% W/EPI MPF -30 ML VIAL IV ONE (16:02)
[2018-11-27] MEDS ORDERED: Sodium Chloride 0.9% vial 20 ML ONE ×3 (16:15→19:45)
[2018-11-27] MEDS ORDERED: BUPivacaine Liposome/PF (Exparel) Inj 20ml vial INFIL ONE (16:15)
[2018-11-27] MEDS ORDERED: BUPivacaine Inj 0.25% PF - 10ml vial ONE ×2 (16:15→20:17)
[2018-11-27] MEDS ORDERED: Sodium Chloride 0.9% vial 10 ML ONE (16:20)
[2018-11-27] MEDS ORDERED: BACITRACIN 50,000 UNIT VIAL IRRIG ONE ×4 (16:20→19:45)
[2018-11-27] MEDS ORDERED: TRANEXAMIC ACID 1,000 MG / 10 ML VIAL ONE (17:05)
[2018-11-27] MEDS ORDERED: ePHEDrine Inj 50 MG/ML AMP ONE (17:26)
[2018-11-27] MEDS ORDERED: Lactated Ringers 1,000 ML PRIMARY IV ONE (17:34)
--- NOTE | 2018-11-27 17:58 | CRNA.PROCE ---
Nerve Block Documentation - - Safety Measures: Time Out Taken, Site Verified - - Type of Nerve Block Used: Right Adductor Canal Nerve Block Position for Nerve Block: Supine Moniters Used During Block: EKG, SPO2, NIBP Oxygen Supplemented: Yes Sedation Used - Enter Amount in Comment Field [ANES.SEDAT]: Midazolam (mg): Yes (2), Fentanyl (mcg): Yes (2) Skin Prep Used: ChloroPrep Draped: No Technique: Ultrasound Nerve Block Needle Used: EchoSpotMe 100 mm Local Anesthetic - Enter Amt in Comment Field [ANES.LOCNB]: 0.5 % Bupivicaine with Epinephrine 1:200,000 (mL): Yes (20), 0.2 % Ropivacaine (mL): Yes (10) Additives to Nerve Blocks: Dexamethasone (mg): Yes (10) - - PreOp Block : Time In: 16:03 PreOp Block : Time Out: 16:15 Anesthesia Time - Other Weight: 60.328 kg Height: 5 ft 3 in Body Mass Index (BMI): 23.6
--- NOTE | 2018-11-27 18:03 | CRNA.PROCE ---
Central Neuraxis Block Placepa - - Safety Measures: Time Out Taken, Site Verified - - Reason for Block: Surgical Moniters Used During Block: EKG, SPO2, NIBP Sedation Used - Enter Amount Used in Comment Field: Midazolam (mg): Yes (2 mg additional post adductor canal blk) Positioning: Sitting Skin Prep Used: ChloroPrep (Twice) Draped: Yes Skin Infiltration - Enter Amount Used in Comment Field: 1% Xylocaine (mL): Yes (1 ml) Introducer User: None Spinal Needle Used: 22 Riddhi 80 mm (1 esay pass. No parasthesia. Clear free flow CSF) Local Anesthetic - Enter Amount Used in Comment Field: 0.75 % Bupivacaine with Dextrose (ml): Yes (2) Additive Used - Enter Amount Used in Comment Field: Preservative Free Morphine (mg): Yes (0.15 mg), Epinephrine 1:1000 Needle Rinse (mL): Yes (Hub rinse) - - Additional Details: Right side down lying post injection. 2 mg Versed given and Jones placed while patient on side. Had jones placed d/t Epinepherine and Duramorph in SAB. Anesthesia Time - Block Time PreOp Block : Time In: 16:03 PreOp Block : Time Out: 16:15 - Other Weight: 60.328 kg Height: 5 ft 3 in Body Mass Index (BMI): 23.6
--- NOTE | 2018-11-27 18:04 | CRNA.PROGR ---
Anesthesia Time - Procedure/Recovery Time Start Date: 11/27/18 End Date: 11/27/18 Anesthesia : Time In: 16:38 Anesthesia : Time Out: 21:53 Anesthesia : Total Time: 315 - Block Time PreOp Block : Time In: 16:03 PreOp Block : Time Out: 16:23 - Total Anesthesia Time Total Anesthesia Time (minutes): 315 - Other Weight: 60.328 kg Height: 5 ft 3 in Body Mass Index (BMI): 23.6 Physical Status: P2 Anesthesia Type: Spinal Block
[2018-11-27] MEDS ORDERED: Hetastarch 6% + NS 500 ML IV ONE (20:25)
--- NOTE | 2018-11-27 21:50 | ORTHO.OP ---
- - -: See Dictated Operative Report Surgery Date: 11/27/18
--- NOTE | 2018-11-27 22:03 | CRNA.PROGR ---
Anesthesia Recovery Phase I - Post Anesthesia Evaluation Patient's Condition on Arrival in Phase I: Stable Patient's Condition on Arrival in Phase II: Stable Pain Level: 3
--- NOTE | 2018-11-27 22:04 | CRNA.PROGR ---
Post Anesthesia Phase II - Post Anesthesia Phase II Patient Stable and Discharged To: Med/Surg Care Assumed By Surgeon: Kris Echols MD Temperature: 97.9 F Pulse Rate: 60 Respiratory Rate: 16 Pulse Ox: 95 Total Jonathan Score at Discharge: 9 Post Anesthesia Discharge Criteria Met: Yes
[2018-11-27] MEDS ORDERED: KETOROLAC 15 MG/1 ML VIAL IVP PRN (22:49)
[2018-11-27] MEDS ORDERED: ONDANSETRON 4 MG/2 ML VIAL IVP PRN (22:49)
[2018-11-27] MEDS: ceFAZolin Inj 2gm (Premix) 2 GM/50 ML BAG IV SCH (23:57)
[2018-11-27] MEDS: DOCUSATE 100 MG CAPSULE PO SCH (23:57)
[2018-11-28] MEDS: Lactated Ringers 1,000 ML PRIMARY IV SCH ×2 (00:33→11:23)
[2018-11-28] MEDS: HYDROcodone-APAP 7.5 MG-325 MG TABLET PO PRN ×5 (03:06→22:43)
[2018-11-28 05:18] LABS: Hematocrit [HCT] 32.2 % (37.0-47.0); Hemoglobin [HGB] 10.5 g/dL (12.0-16.0); MEAN CORPUSCULAR HEMOGLOBIN 31.6 PG (27-31); MEAN CORPUSCULAR HGB CONC 32.6 g/dL (33-37); MEAN PLATELET VOLUME 9.6 FL (7.4-12.2); RED BLOOD COUNT 3.32 10^6/uL (4.20-5.40)
[2018-11-28 05:32] LABS: BLOOD UREA NITROGEN 9 mg/dL (7-22)
--- NOTE | 2018-11-28 07:00 | DI ---
XR PELVIS 1-2VW 11/27/2018 9:52 PM History: [facility] [place] DI ^right hip oA ^AP pelvis Comparison: CT abdomen/pelvis 05/28/2018. Findings: A portable AP view of the pelvis is submitted. A Sosa catheter projects midline with the t ip over the lower pelvis. The patient is status post right total hip arthroplasty. There is no eviden ce of acute fracture, bone lesion, or focal periostitis. Early degenerative changes of the left hip a re noted. Advanced lumbar degenerative disc disease is present with evidence of L5 laminectomy. The v isualized soft tissues are unremarkable. Impression: 1. No acute osseous abnormality within the limits of this exam. 2. Status post right total hip arthroplasty with early degenerative changes of the left hip.
--- NOTE | 2018-11-28 07:03 | DI ---
XR KNEE 1 OR 2 VWS 11/27/2018 9:52 PM HISTORY: [facility] [place] [facility] ^right knee OA ^AP and lateral Comparison: None. Findings: Portable AP and crosstable lateral views of the right knee show postsurgical changes consis tent with total knee arthroplasty. There is no evidence of hardware fracture or loosening. No acute f racture or dislocation is noted. Surgical afia project over the anterior soft tissues. There is ga s in the soft tissues, an expected finding in the immediate postoperative timeframe. A wound VAC is p laced over the anterior distal thigh. Impression: Status post total knee arthroplasty without evidence of hardware failure or acute osseous abnormality.
[2018-11-28] MEDS: ceFAZolin Inj 2gm (Premix) 2 GM/50 ML BAG IV SCH ×3 (08:32→22:43)
[2018-11-28] MEDS: ENOXAPARIN SODIUM 30 MG/0.3 ML SYRINGE SUBCUT SCH ×2 (08:38→21:04)
[2018-11-28] MEDS: ESCITALOPRAM 10 MG TABLET PO SCH (08:39)
[2018-11-28] MEDS: Calcium/Vit D 600mg/400u Tab 1 TAB TABLET PO SCH (08:39)
[2018-11-28] MEDS: FLUTICASONE PROPIONATE 16 GRAM (120 SPRAYS / BOTTLE) ENOS SCH (08:39)
[2018-11-28] MEDS: LORATADINE 10 MG TABLET PO SCH (08:39)
[2018-11-28] MEDS: CYANOCOBALAMIN (VITAMIN B-12) 1,000 MCG TABLET.ER PO SCH (08:39)
[2018-11-28] MEDS: GABAPENTIN 300 MG CAPSULE PO SCH ×2 (08:40→21:05)
[2018-11-28] MEDS: DOCUSATE 100 MG CAPSULE PO SCH ×2 (08:40→21:05)
[2018-11-28] MEDS ORDERED: [UNRECOGNIZED DRUG - REMARK] PO SCH (09:00)
--- NOTE | 2018-11-28 09:11 | CRNA.PROGR ---
Anesthesia Note - Progress Notes Anesthesia Progress Note: She's cheerful this am. Lying in bed using her smartphone. States she's had pain medicine a couple of times. Knee began to wake up about 3 am. No nausea. No puritis. Mentation bright and appropriate. Laboratory Results 11/27/18 11/27/18 11/27/18 13:30 13:59 22:03 WBC RBC Hgb Hct 32.2 L MCV MCH MCHC RDW Std Deviation RDW Coeff of Michele Plt Count MPV Sodium Potassium Chloride Carbon Dioxide Anion Gap BUN Creatinine BUN/Creatinine Ratio Glucose Calculated Osmolality Calcium Ur Collection Type Clean catch urine Urine Color Yellow Urine Clarity Clear Urine pH 5.0 Ur Specific [place] 1.015 Urine Protein Negative Urine Glucose (UA) Negative Urine Ketones Trace A Urine Occult Blood Negative Urine Nitrate Negative Urine Bilirubin Negative Urine Urobilinogen 0.2 Ur Leukocyte Esterase Negative Ur Culture Indicated? Culture not set Blood Type B POSITIVE Antibody Screen Negative Crossmatch See Detail 11/27/18 11/28/18 11/28/18 22:03 05:05 05:05 WBC 9.40 RBC 3.32 L Hgb 10.5 L 10.5 L Hct 32.2 L MCV 97.0 MCH 31.6 H MCHC 32.6 L RDW Std Deviation 47.2 RDW Coeff of Michele 13.7 Plt Count 204 MPV 9.6 Sodium 142 Potassium 4.9 Chloride 108 Carbon Dioxide 26 Anion Gap 8 BUN 9 Creatinine 0.6 BUN/Creatinine Ratio 15.00 Glucose 143 H Calculated Osmolality 294.0 H Calcium 8.1 L Ur Collection Type Urine Color Urine Clarity Urine pH Ur Specific [place] Urine Protein Urine Glucose (UA) Urine Ketones Urine Occult Blood Urine Nitrate Urine Bilirubin Urine Urobilinogen Ur Leukocyte Esterase Ur Culture Indicated? Blood Type Antibody Screen Crossmatch Vital Signs - Last Taken Temperature 97.2 F 11/28/18 08:08 Pulse Rate 59 L 11/28/18 08:08 Respiratory Rate 18 11/28/18 08:08 Blood Pressure 111/59 11/28/18 08:08 Pulse Ox 96 11/28/18 08:08 O2 at 1 l/m via nasal cannula. She's pleased with her care at this point. No apparent anesthetic difficulties at this time.
--- NOTE | 2018-11-28 11:07 | ORTHO.PROG ---
Last Taken Vital Signs: Vital Signs - Last Taken Temperature 97.2 F 11/28/18 08:08 Pulse Rate 59 L 11/28/18 08:08 Respiratory Rate 18 11/28/18 08:08 Blood Pressure 111/59 11/28/18 08:08 Pulse Ox 96 11/28/18 08:08 Subjective: POD 1 s/p right TKA revision and right hip granuloma excision. Patient reports s he slept well last night. She feels that the block has worn off, but states she is not having much pain. Denies any CP, SOB, F/C, calf pain. Patient feels ready to be discharged. She will be staying with her daughter in [place] for the next week. Objective: Laboratory Results 11/27/18 11/27/18 11/27/18 13:30 13:59 22:03 WBC RBC Hgb Hct 32.2 L MCV MCH MCHC RDW Std Deviation RDW Coeff of Michele Plt Count MPV Sodium Potassium Chloride Carbon Dioxide Anion Gap BUN Creatinine BUN/Creatinine Ratio Glucose Calculated Osmolality Calcium Ur Collection Type Clean catch urine Urine Color Yellow Urine Clarity Clear Urine pH 5.0 Ur Specific [place] 1.015 Urine Protein Negative Urine Glucose (UA) Negative Urine Ketones Trace A Urine Occult Blood Negative Urine Nitrate Negative Urine Bilirubin Negative Urine Urobilinogen 0.2 Ur Leukocyte Esterase Negative Ur Culture Indicated? Culture not set Blood Type B POSITIVE Antibody Screen Negative Crossmatch See Detail 11/27/18 11/28/18 11/28/18 22:03 05:05 05:05 WBC 9.40 RBC 3.32 L Hgb 10.5 L 10.5 L Hct 32.2 L MCV 97.0 MCH 31.6 H MCHC 32.6 L RDW Std Deviation 47.2 RDW Coeff of Michele 13.7 Plt Count 204 MPV 9.6 Sodium 142 Potassium 4.9 Chloride 108 Carbon Dioxide 26 Anion Gap 8 BUN 9 Creatinine 0.6 BUN/Creatinine Ratio 15.00 Glucose 143 H Calculated Osmolality 294.0 H Calcium 8.1 L Ur Collection Type Urine Color Urine Clarity Urine pH Ur Specific [place] Urine Protein Urine Glucose (UA) Urine Ketones Urine Occult Blood Urine Nitrate Urine Bilirubin Urine Urobilinogen Ur Leukocyte Esterase Ur Culture Indicated? Blood Type Antibody Screen Crossmatch Radiographs of the right knee show s/p Right TKA with extended tibial stem. The components are well fixed and positioned. On exam, the Prevena dressings are intact and holding suction. AROM of right foot and ankle performed without difficulties. 2+ DP pulse. NV intact. Negative calf tenderness. Assessment: POD 1 s/p right TKA revision and right hip granuloma excision overall doing well and pain is well controlled. H/H stable. Plan: * DVT ppx: continue lovenox in the hospital, discharge home on ASA 81 mg 1 tablet daily x 6 weeks and portable SCDs * Activity: WBAT with walker and IROM brace locked in extension at all times unless with PT may unlock brace from 0-30 degrees only * Pain meds: continue hydrocodone upon discharge * Abx ppx: continue ancef while inpatient and discharge home on Keflex 500mg 1 tab q8hrs x 7 days * Wound care: leave Prevena dressings in place until first PO appointment * Start outpatient PT on Monday for pain and edema controll * discharge home once cleared by PT * follow-up with ortho in 1 week as scheduled
--- NOTE | 2018-11-28 11:09 | CONSULT ---
Consult Note - Consult Reason for Consult: PostOp Consulation : Ortho Requesting Physician: Dr. Echols medical management Primary Care Provider: NONE NONE - History of Present Illness History of Present Illness: This very nice 78-year-old female status post right knee surgery by Dr. Echols doing well this morning no chest pain nausea or vomiting. Past Medical History Medical History: 1. Osteoarthritis with multiple surgeries. 2. Possible depression as she is on Lexapro. 3. Seasonal allergies Surgical History: 1. shoulder surgeries. 2. right hip replacement. 3. right knee replacement. 4. Hysterectomy. 5. Neck surgery. 6. Back surgeries Pertinent Family History: Sister has very bad diabetes Past Social History: Does not smoke. Drinks upwards of 2 alcoholic beverages daily. Lives in [place], [place], is but her has dementia and is in a senior living and repetition. Patient had 3 children but unfortunately one child has passed on. Her daughter is present with her here at bedside today. Tobacco Use: Former Smoker In the Past 12 Months, Have Used or Abuse Any of the Following Substance: None Review of Systems - Review of Systems All Systems: Reviewed & No Additional Complaints Except as Stated - Cardiovascular Cardiovascular: DENIES: Negative System Review, Chest Pain, Edema, Syncope, Palpitations, Orthopnea, Paroxysmal Nocturnal Dyspnea, Other, See HPI - Gastrointestinal Gastrointestinal / Abdominal: DENIES: Negative System Review, Nausea, Vomiting, Diarrhea, Constipation, Abdominal Pain, Bloody Stool, Poor Appetite, Heartburn, Regurgitation, Bloating, Lactose Intolerance, Melena, Bright Red Blood per Rectum, Other, See HPI Medication / Allergies Home Medications: Home Medications Medication Instructions Recorded Confirmed Calcium Carbonate/Vitamin D3 1 ea PO DAILY 05/28/18 11/27/18 [Calcium 600 + Vit D 200 Tablet] Cetirizine HCl [Allergy Relief] 10 mg PO DAILY 05/28/18 11/27/18 Cyanocobalamin (Vitamin B-12) 1,000 mg PO DAILY 05/28/18 11/27/18 [Vitamin B12] Escitalopram Oxalate [Lexapro] 10 mg PO DAILY 05/28/18 11/27/18 Acidophilus/Bulgaricus [Lactinex] 4 tab PO TID tab.chew 05/30/18 11/27/18 Gabapentin 300 mg PO TID 11/28/18 11/28/18 Pantoprazole Sodium [Protonix] 40 mg PO DAILY 11/28/18 11/28/18 Allergies/Adverse Reactions: Allergies Allergy/AdvReac Type Severity Reaction Status Date / Time meperidine [From Demerol] Allergy Dysphoria Verified 11/27/18 13:44 oxycodone [From OxyContin] Allergy Other : Verified 11/27/18 13:44 See Comment shellfish derived Allergy RASH Verified 11/27/18 13:44 Exam - Vitals Vital Signs: Vital Signs Temperature 97.2 F Temperature Source Temporal Artery Scan Pulse Rate [Pulse Oximeter] 59 Pulse Rate 65 Respiratory Rate 18 Blood Pressure [Right Arm] 111/59 Blood Pressure 118/73 Pulse Ox 96 Oxygen Flow Rate 1 Oxygen Delivery Method Nasal Cannula Height 5 ft 3 in Weight 142 lb 3.2 oz - General General Appearance: No Acute Distress, Cooperative - Respiratory Respiratory Exam: POSITIVE: Clear to Auscultation - Bilaterally, Breathing Non Labored, Normal To Percussion, Normal to Percussion and Palpation - Cardiovascular Cardiovascular Exam: POSITIVE: RRR, No Murmur, No Clicks, No Gallops, No Rubs, PMI Non-Displaced - GI/Abdominal GI/Abdominal Exam: POSITIVE: Normal Bowel Sounds, Non Tender, Non Distended, Soft, No Masses, No Hepatomegaly, No Splenomegaly, No Organomegaly Results - Labs CBC and BMP: 11/28/18 05:05 11/28/18 05:05 Assessment and Plan - Assessment / Plan Additional Assessment/Plan Details: Patient is doing well postop day 1 defer PT OT orders and 1 patient go home to orthopedic team Dr. Echols's PA was in the room with me seeing the patient as she will go through physical therapy and then they will decide. Continue all her home meds no active issues at present time
--- NOTE | 2018-11-28 15:59 | PT.PROG ---
Progress Note Progress Note: S: Pt. states she is doing well. States she feels good. Expressed she would be staying at her daughters for a week after d/c from hospital. O: Treatment consisted of functional activities: ambulated down to therapy room where she received moist heat to right knee and hip f/b therapeutic exercises: qs, hs, slr, hip ab/ad, sit to stands. She also received massage to right knee to assist with swelling and pain. Pt then ambulated back up to her room and was left with OT. IROM was placed on her knee during weight bearing activities. A: Pt. is moving her knee very well. She is doing well and is often impulsive when transitioning. P: Continue per POC to increase strength and activity tolerance. Essence Yung, TOBACCO SORTER
[2018-11-28] MEDS ORDERED: diphenhydrAMINE 50 MG/1 ML VIAL IVP ONE (16:56)
[2018-11-29 05:20] LABS: Hematocrit [HCT] 29.1 % (37.0-47.0); Hemoglobin [HGB] 9.4 g/dL (12.0-16.0); MEAN CORPUSCULAR HGB CONC 32.3 g/dL (33-37); RED BLOOD COUNT 2.94 10^6/uL (4.20-5.40)
[2018-11-29 05:36] LABS: BLOOD UREA NITROGEN 13 mg/dL (7-22)
[2018-11-29] MEDS: ceFAZolin Inj 2gm (Premix) 2 GM/50 ML BAG IV SCH ×3 (05:50→22:29)
[2018-11-29] MEDS: FLUTICASONE PROPIONATE 16 GRAM (120 SPRAYS / BOTTLE) ENOS SCH (08:19)
[2018-11-29] MEDS: DOCUSATE 100 MG CAPSULE PO SCH ×2 (08:20→21:23)
[2018-11-29] MEDS: GABAPENTIN 300 MG CAPSULE PO SCH ×2 (08:20→21:22)
[2018-11-29] MEDS: ENOXAPARIN SODIUM 30 MG/0.3 ML SYRINGE SUBCUT SCH ×2 (08:20→21:23)
[2018-11-29] MEDS: CYANOCOBALAMIN (VITAMIN B-12) 1,000 MCG TABLET.ER PO SCH (08:21)
[2018-11-29] MEDS: ESCITALOPRAM 10 MG TABLET PO SCH (08:25)
[2018-11-29] MEDS: HYDROcodone-APAP 7.5 MG-325 MG TABLET PO PRN ×4 (08:25→21:22)
[2018-11-29] MEDS: LORATADINE 10 MG TABLET PO SCH (08:26)
[2018-11-29] MEDS: Calcium/Vit D 600mg/400u Tab 1 TAB TABLET PO SCH (08:53)
--- NOTE | 2018-11-29 09:28 | PTI REPORT ---
Thank you for the referral of Sarai Castaneda. She was seen on 11/28/18 for an inpatient evaluation status post right total knee replacement. SUBJECTIVE: The patient is a 78-year-old female who states that she underwent a revision of a right total knee replacement yesterday and also did have surgery to remove lipomas from her right hip as well. The patient lives in [place], [place] by herself. She states that she has five stairs into her home with a hand rail. She reports that she was not using an assistive device prior to her surgery and was independent with her ADLs. She does have a history of falls within the last three months. She states that she had a fall at home when she went to go put her snow shovel away and fell onto her left shoulder which had hurt her for quite a while, but she reports no injury and is doing better at this time. The patient reports that shortly after that fall she had another fall while trying to get into her strip picker a couple of days later, but denies any injury from that fall as well. The patient states that she has a daughter here in [place] that she is going to stay with for at least a week after surgery. She states that her daughter does have four steps into the house and does have a tub that she needs to get into and out of. The patient reports that she is on oxygen at night and she does have a prior history of a right total knee replacement and a right total hip replacement. PAST MEDICAL HISTORY: Past medical history can be found in the patient's medical record. OBJECTIVE FINDINGS: General observations: The patient was alert and oriented to setting upon PT arrival. The patient was on one liter of oxygen and did have an IV in place and also did have a PREVENA dressings on both her knee and her hip on the right. The patient also did have an IROM brace in place on the right and does have orders to weight-bear as tolerated but must have the IROM locked in extension when ambulating. Bed mobility: The patient was able to transfer from supine to seated edge of bed position with stand by assist x1 for safety. Once in a seated position the patient denied any lightheadedness or dizziness. Transfers: A gait belt was placed around the patient and she was able to transfer from a sit to standing position. Once in a standing position, the patient demonstrated fair initial standing balance with hand hold assist x2 on the walker and her IROM locked at 0 degrees. The patient was able to step up onto a scale in order to obtain her weight for nursing and was able to step back down from the scale. Ambulation: The patient ambulated 150 feet with walker, IROM at 0 degrees, and contact guard assist x1 for safety. After ambulation the patient stated that she was fatigued and she transferred back into bed with min assist x1. ASSESSMENT: The patient has good rehab potential. Problem List: Patient is status post right total knee with orders for IROM to be locked at 0 with ambulating Increased pain Weakness Short-Term Goals: To be met by discharge from inpatient: Patient will be able to transfer from bed to stand safely and independently. Patient will be able to correctly operate her IROM brace in order to unlock when she is sitting or supine and will be able to lock the brace back up when ambulating and will be able to don and doff the brace. Patient will be able to ambulate 150 feet with walker safely and independently. Patient will be able to ascend and descend at least five steps with walker, safely and independently. Long-Term Goals: To be met following discharge from inpatient: Patient will be seen by outpatient physical therapy, most likely back home in [place]. TREATMENT PLAN: Patient will be seen B.I.D during the week and one time per day over the weekend as an inpatient to address the above goals and objectives. INITIAL TREATMENT: Treatment today consisted of the initial evaluation followed by one unit of functional activity. Following treatment the patient was left in bed with SCDs placed around her bilateral calves. The patient was instructed how to use the set that goes home with her. The therapist did discuss with nursing staff that when the patient is up, her IROM needs to be locked at [address]. In order for the SCDs to work the therapist did have to open up the IROM brace on the bottom. The patient's bed alarm was set and her call light was placed within reach. [facility]ANT HOSPITALEstuardo
--- NOTE | 2018-11-29 09:39 | OTI REPORT ---
Thank you for the referral of Sarai Castaneda. She was seen on 11/28/18 for an occupational therapy inpatient evaluation status post right total knee arthroplasty. SUBJECTIVE: The patient is a 78-year-old female who is being seen status post right total knee arthroplasty. The patient had a revision on the right side. The patient also did have some lipomas removed from her right hip. The patient has a history of a right total hip arthroplasty, a previous total knee arthroplasty on the right side, bilateral shoulder surgeries, back surgeries, and neck surgeries. The patient currently reports a pain level of 5/10 on the verbal analog scale (0=no pain, 10=worst pain). The patient reports that she lives in [place], [place]. She has six stairs to the entrance of her home with handrails. Within her home she has no stairs. The patient does have two toilets in her home that are comfort height. She has a nice walk in shower with a built in shower bench. The patient does report that she puts a wash rag down when showering to prevent slipping. Upon discharge from inpatient, the patient is going to be living with her daughter here in [place] for about a week and will be coming in for outpatient therapy. At her daughter's house, the patient has four steps to the entrance of her home and then no stairs within the home. The patient does have a low toilet at her daughter's house that she is concerned about and a tub/shower combo. The patient does report that her daughter is looking into getting a toilet riser and a tub transfer bench from the [facility] to use for the week while she is here. PAST MEDICAL HISTORY: Past medical history can be found in the patient's medical record. OBJECTIVE FINDINGS: General observations: The patient does have precautions. She is weight-bearing as tolerated; however, when she is up and walking with weight-bearing she needs to have the IROM locked in extension. Ambulation: The patient was able to ambulate x150 feet with contact guard assist for safety with use of a standard walker. The patient does report fatigue upon ambulating longer distances. Range of motion: Upper extremity range of motion is within functional limits for shoulders, elbows, hands, and wrists. Strength: The patient demonstrates strength of 4/5 in bilateral shoulders, elbows, hands, and wrists. Transfers: The patient demonstrated the ability to perform a functional transfer with IROM brace locked in extension. Due to the patient's leg in extension, she may have difficulty with transfers from low surfaces to include her toilet at her daughter's house. Bed mobility: The patient was able to perform bed mobility to include moving from supine to sitting edge of bed and from sitting edge of bed to supine independently with a leg hooking technique. Activities of daily living: The patient was issued a commercial helicopter pilot, sock aide, long handled shoe horn, and a bath sponge. The patient reported she did not want to get dressed at this time as it is the afternoon and she will be getting ready for bed soon. The patient would like assistance with dressing training in the morning. ASSESSMENT: The patient has good rehab potential. Problem List: Decreased upper extremity strength Decreased standing balance activity tolerance on left lower extremity due to the IROM brace Decreased ability to complete functional transfers Decreased ability to complete ADLs Short-Term Goals: To be met by discharge from inpatient: Patient will increase bilateral upper extremity strength by one manual muscle grade to assist with functional transfers and functional mobility tasks. Patient will complete lower extremity dressing tasks with modified independence with use of adaptive equipment as needed. Patient will complete upper extremity dressing tasks with set up assistance. Patient will complete all functional transfers to include toilet/chair/bed with contact guard assist for safety with the IROM brace in place. Patient will demonstrate the ability to don and doff IROM brace independently. Patient will demonstrate the ability to complete a toileting task with contact guard assist for the transfer and independence with hygiene and pants management. Patient will demonstrate the ability to complete standing grooming tasks x10 minutes with no losses of balance while standing at the sink with contact guard assist only. Long-Term Goals: To be met following discharge from inpatient: Patient will return home to prior level of function. Patient will be seen by outpatient physical therapy. TREATMENT PLAN: Patient will be seen B.I.D during the week and one time per day over the weekend as an inpatient to address the above goals and objectives. INITIAL TREATMENT: Treatment today consisted of the initial evaluation only. Upon returning to her room the patient was assisted to bed with IROM brace in place and bilateral SCDs on lower extremities. Bed alarm was set, ice was applied to the patient's right hip and right knee, and call light was left in place. BJORN
--- NOTE | 2018-11-29 10:55 | OT.PROG ---
Progress Note Progress Note: S: pt reported she believes she may have overdone it yesterday because she was feeling so good. O: pt was seen in her room and completed bed mobility INd to EOB. She completed LE dressing with min A and use of food service cashier. She completed UE dressing Ind. She then completed toilet transfer with CGA for safety. She completed sit to stand with min A from toilet and hygiene at sink INd. she transferred approx 60 ft before sitting in w/c and transferring downstairs. She completed bed mobility with use of leg tafe lecturer. A: pt participated well, but did have a little difficulty with donning LE cloths over the brace. She moved much better the further she transferred. P: continue per POC.
--- NOTE | 2018-11-29 14:16 | ORTHO.PROG ---
Last Taken Vital Signs: Vital Signs - Last Taken Temperature 98 F 11/29/18 13:00 Pulse Rate 66 11/29/18 13:00 Respiratory Rate 20 11/29/18 13:00 Blood Pressure 108/50 11/29/18 13:00 Pulse Ox 94 11/29/18 13:00 Subjective: Patient is doing well and the nurse reports her pain is under control taking 1 tablet of the pain medicine every 5-6 hours. She was able to ambulate with physical therapy and is ready to be discharged to her daughter's house. Objective: Laboratory Results 11/29/18 11/29/18 04:50 04:50 WBC 6.29 RBC 2.94 L Hgb 9.4 L Hct 29.1 L MCV 99.0 MCH 32.0 H MCHC 32.3 L RDW Std Deviation 49.6 RDW Coeff of Michele 14.3 Plt Count 171 MPV 10.0 Sodium 144 Potassium 4.0 Chloride 108 Carbon Dioxide 28 Anion Gap 8 BUN 13 Creatinine 1.0 BUN/Creatinine Ratio 13.00 Glucose 102 Calculated Osmolality 297.0 H Calcium 8.2 L Assessment: POD 2 s/p right TKA revision overall doing well and pain controlled. Ready to be discharged home. Plan: * DVT ppx: discharge home on ASA 81mg 1 tablet daily and portable SCDs * Pain meds: discharge home on hydrocodone 7.5/325mg 1-2 tabs every 4-6 hours prn pain * Abx ppx: discharge home on 7 days of Keflex 500mg TID * cryocuff to right knee * activity: IROM brace locked in extension at all times except PT may unlock brace 0-30 degrees; WBAT with walker * wound care: leave Prevena dressings in place until first PO appointment * follow-up 1 week with ortho, sooner prn * discharge home
--- NOTE | 2018-11-29 16:02 | PT.PROG ---
Progress Note Progress Note: S. Patient stated that she is feeling good this morning she agreed to go to the therapy gym. O. Patient ambulated 90 feet to the wheelchair and was wheeled to the therapy gym where she had heat to her knee then performed, heel slides, quad sets, ankle pumps, short arc quads, sit to stands all x 10, Box step ups with #2 and #3 boxes x 5 each. Patient ambulated 90 feet to the wheelchair and was wheeled back to her room where she was left with alarm and call light. A. Patient tolerated therapy well, she had no complaints of increased pain or problems. Patient would benefit from one more session of therapy to perform stair training. P. Continue POC.
--- NOTE | 2018-11-29 16:04 | PT.PROG ---
Progress Note Progress Note: S. Patient stated she feels that she is ready to go home. O. Patient doffed and donned her brace independently, then ambulated 90 feet to the stairwell and ascended and descended 6 stairs than ambulated 90 feet back to her room where she was left in bed with alarm and call light. A. Patient tolerated therapy well, she was able to perform stair training with no problems. Patient would benefit from Outpatient therapy at this time. P. Patient has met all goals.
--- NOTE | 2018-11-29 20:40 | PDOC(PROG) ---
Interval History: Patient has no complaints awaiting for physical therapy evaluate to find out if she can go home nice chest pain nausea or vomiting Objective : Data - Labs CBC and BMP: 11/29/18 04:50 11/29/18 04:50 Objective : Exam - General General Appearance: Cooperative - Respiratory Respiratory Exam: Clear to Auscultation - Bilaterally, Breathing Non Labored, Normal To Percussion, Normal to Percussion and Palpation - Cardiovascular Cardiovascular Exam: RRR, No Murmur, No Clicks, No Gallops, No Rubs, PMI Non- Displaced Assessment and Plan - Assessment / Plan Additional Assessment/Plan Details: Continue current medical management of chronic medical issues are stable defer postop instructions and discharge planning to orthopedic team in regards to her knee surgery
[2018-11-29] MEDS: CYCLOBENZAPRINE 10 MG TABLET PO PRN (21:21)
[2018-11-30 04:30] LABS: Hematocrit [HCT] 30.5 % (37.0-47.0); Hemoglobin [HGB] 9.8 g/dL (12.0-16.0); MEAN CORPUSCULAR HEMOGLOBIN 31.8 PG (27-31); MEAN CORPUSCULAR HGB CONC 32.1 g/dL (33-37); MEAN PLATELET VOLUME 9.9 FL (7.4-12.2); RED BLOOD COUNT 3.08 10^6/uL (4.20-5.40)
[2018-11-30 04:55] LABS: BLOOD UREA NITROGEN 10 mg/dL (7-22)
[2018-11-30] MEDS: ceFAZolin Inj 2gm (Premix) 2 GM/50 ML BAG IV SCH ×2 (05:55→15:34)
[2018-11-30] MEDS: HYDROcodone-APAP 7.5 MG-325 MG TABLET PO PRN ×4 (05:55→17:28)
[2018-11-30] MEDS: GABAPENTIN 300 MG CAPSULE PO SCH (08:37)
[2018-11-30] MEDS: ENOXAPARIN SODIUM 30 MG/0.3 ML SYRINGE SUBCUT SCH (08:37)
[2018-11-30] MEDS: Calcium/Vit D 600mg/400u Tab 1 TAB TABLET PO SCH (08:37)
[2018-11-30] MEDS: ESCITALOPRAM 10 MG TABLET PO SCH (08:37)
[2018-11-30] MEDS: LORATADINE 10 MG TABLET PO SCH (09:00)
[2018-11-30] MEDS: CYANOCOBALAMIN (VITAMIN B-12) 1,000 MCG TABLET.ER PO SCH (09:00)
[2018-11-30] MEDS: DOCUSATE 100 MG CAPSULE PO SCH (09:00)
[2018-11-30] MEDS: FLUTICASONE PROPIONATE 16 GRAM (120 SPRAYS / BOTTLE) ENOS SCH (09:01)
--- NOTE | 2018-11-30 09:13 | ORTHO.PROG ---
Last Taken Vital Signs: Vital Signs - Last Taken Temperature 98.4 F 11/30/18 08:24 Pulse Rate 64 11/30/18 08:24 Respiratory Rate 18 11/30/18 04:09 Blood Pressure 153/66 11/30/18 08:24 Pulse Ox 98 11/30/18 08:24 Subjective: Patient states she slept well last night. Her pain has increased in the last 24 hours, but she feels it is currently under control taking 1 tablet of hydrocodone as needed. She also found the flexeril helpful. Denies any calf pain, CP, SOB, F/C, paresthesias. Now that she has worked with physical therapy another day she feels better about being discharged to her daughter's house today. Objective: Laboratory Results 11/30/18 11/30/18 04:12 04:12 WBC 6.66 RBC 3.08 L Hgb 9.8 L Hct 30.5 L MCV 99.0 MCH 31.8 H MCHC 32.1 L RDW Std Deviation 50.6 H RDW Coeff of Michele 14.4 Plt Count 158 MPV 9.9 Sodium 142 Potassium 3.9 Chloride 107 Carbon Dioxide 28 Anion Gap 7 BUN 10 Creatinine 0.8 BUN/Creatinine Ratio 12.50 Glucose 108 Calculated Osmolality 293.0 H Calcium 8.1 L On exam, A&O x 3 not in any acute distress. Prevena dressings holding suction. Negative calf tenderness. NV intact. Assessment: POD 3 s/p Right revision TKA and right lateral hip granuloma excision. Pain currently under control and ready to be discharged to daughter's house today. Plan: * DVT ppx: ASA 81mg 1 tab daily and portable SCDs * pain meds: hydrocodone and will add in flexeril 5mg 1 tab [id number] prn * IROM brace locked in extension WBAT with walker * Prevena dressing leave in place until first PO appointment * discharge to daughter's house today * follow-up on Monday (12/03) with Dr. Echols as scheduled
--- NOTE | 2018-11-30 11:13 | PDOC(PROG) ---
Interval History: Doing well she was cleared by orthopedic surgery team to go home and physical therapy she is staying with her daughter and not going back to [facility] she uses oxygen at night I personally walked the patient and desatted down to 74% on room air I will write a prescription for 24 7 oxygen before she is discharged home. Objective : Data - Labs CBC and BMP: 11/30/18 04:12 11/30/18 04:12 Objective : Exam - General General Appearance: Cooperative - Respiratory Respiratory Exam: Clear to Auscultation - Bilaterally, Breathing Non Labored, Normal To Percussion, Normal to Percussion and Palpation - Cardiovascular Cardiovascular Exam: RRR, No Murmur, No Clicks, No Gallops, No Rubs, PMI Non- Displaced - GI/Abdominal GI/Abdominal Exam: Normal Bowel Sounds, Non Tender, Non Distended, Soft, No M asses, No Hepatomegaly, No Splenomegaly, No Organomegaly Assessment and Plan - Patient Problems (1) Status post knee surgery Current Visit: Yes Status: Acute Comment: Defer to orthopedic surgery team for PTOT orders and pain control Code(s): Z98.890 - Other specified postprocedural states (2) Hypoxia, sleep related Current Visit: Yes Status: Acute Comment: Patient has sleep apnea on oxygen at night and landed she did desat during her walking oxygen prescribed for her to go home Code(s): G47.34 - Idiopathic sleep related nonobstructive alveolar hypoventilation
[2018-11-30 11:28] VITALS: RESP 16
--- NOTE | 2018-11-30 12:05 | PT.PROG ---
Progress Note Progress Note: S. she was having bowel issues this morning and didn't want to get too far from the restroom. O. Patient ambulated 100 feet in the martinez and back to her room where she was left in the restroom and nursing was notified. A. Patient's o2 sats measured at 84 while standing still then decreased to 74 during ambulation, She was slightly short of breath. Patient would continue to benefit from one more session of therapy before discharge home. P. Continue POC.
--- NOTE | 2018-11-30 14:34 | PT PM DAY ---
Diagnosis : Right Total Knee Arthroplasty PM - Physical Therapy O: The patient was issued an IROM brace and instructed in its proper use and care. BJORN
--- NOTE | 2018-11-30 16:03 | PT.PROG ---
Progress Note Progress Note: S. Patient stated that she is feeling better this afternoon compared to this morning. O. Patient ambulated 90 feet to the wheelchair and was wheeled to the therapy gym where she had heat to her knee then performed heel slides, quad sets, ankle pumps, short arc quads all x 10. Sit to stands x 10. Patient was left with OT for further therapy. A. Patient tolerated therapy fair, she continues to struggle with pain and requires assist with quad exercises. Patient would continue to benefit from outpatient therapy at this time. P. Patient has met all goals.
[2018-11-30 16:41] VITALS: BP 147/73; TEMP 98.9; O2SAT 93
--- NOTE | 2018-11-30 16:52 | OT.PROG ---
Progress Note Progress Note: Occupational Therapy: S: Pt. reports that she is doing fair and is hoping to go home this afternoon to her daughters house. O: Pt. completed B UE strengthening with RTB for horizontal abduction, biceps curls, triceps extension, shoulder extension, and rows 2 X 15 each to assist with functional mobility and ADL task completion. Pt. was returned to her room in recliner chair with call light in place. A: Pt. tolerated UE strengthening well. P: Continue POC. JOHN Hill/Aruna
[2018-11-30] MEDS: CYCLOBENZAPRINE 10 MG TABLET PO PRN (17:28)
--- NOTE | 2018-12-11 14:26 | ORTHO.DC ---
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 She was admitted for post-operative medical management as well as pain control. She has GUSTABO at baseline and requires O2 at night. She did not bring her CPAP machine to the hospital and dropped down to SpO2 74% on RA while ambulating. She was discharged to her daughter's house on O2. The remainder of her hospital course was uneventful. She had routine requirements for PT as well as pain control. Discharged to daughter's house on POD 3. Discharge Medications: Discharge Medications Calcium Carbonate/Vitamin D3 [Calcium 600 + Vit D 200 Tablet] 1 ea PO DAILY 05/28/18 [History] Cetirizine HCl [Allergy Relief] 10 mg PO DAILY 05/28/18 [History] Cyanocobalamin (Vitamin B-12) [Vitamin B12] 1,000 mg PO DAILY 05/28/18 [History] Escitalopram Oxalate [Lexapro] 10 mg PO DAILY 05/28/18 [History] Acidophilus/Bulgaricus [Lactinex] 4 tab PO TID tab.chew 05/30/18 [Rx] Albuterol Sulfate [Proair Hfa] 2 inh INHALATION Q4H PRN 11/28/18 [History] Gabapentin 300 mg PO TID 11/28/18 [History] Pantoprazole Sodium [Protonix] 40 mg PO DAILY 11/28/18 [History] Follow-Up: Kris Echols [STAFF PHYSICIAN] - 12/03/18 9:30 am ([facility]) NONE,NONE [Primary Care Provider] - As Needed Discharge Instructions Provided to Patient / Family: Patellar Fracture Repair (DC), Total Hip Replacement (DC) Exam - Vitals Vital Signs: Vital Signs Temperature 98.9 F Temperature Source Temporal Artery Scan Pulse Rate [Apical] 60 Pulse Rate [Pulse Oximeter] 66 Pulse Rate 65 Respiratory Rate 16 Blood Pressure [Left Arm] 147/73 Blood Pressure [Right Arm] 156/81 Blood Pressure 118/73 Pulse Ox 93 Oxygen Flow Rate 1 Oxygen Delivery Method Room Air Height 5 ft 3 in Weight 64.501 kg
== END 2018-11-30 17:47 | disposition home or self-care (01) | DRG 468 ==
LOC: OPS 13:16 → MED/SURG 21:53
PROVIDERS: ADMIT Orthopaedic Surgery; ATTEND Orthopaedic Surgery